=== PATIENT | female | born 1990 | race Caucasian/White ===

== ENCOUNTER 2020-11-19 18:03 | Emergency (ER) | payer BC, MEDICAID ==
[~2020-11-19] VITALS: Ht 167.6 cm; Wt 65.8 kg
[2020-11-19 18:05] VITALS: BP_SYST 137
[2020-11-19] MEDS ORDERED: IBUPROFEN 600 MG TABLET PO ONE (20:15)
[2020-11-19 20:24] VITALS: BP_SYST 137
== END 2020-11-19 20:22 | disposition home or self-care (01) ==
LOC: SED 18:03
DX: S29.011A Strain of muscle and tendon of front wall of thorax, initial encounter (principal); X50.9XXA Other and unspecified overexertion or strenuous movements or postures, initial encounter; Y93.89 Activity, other specified; Y92.89 Other specified places as the place of occurrence of the external cause; Y99.8 Other external cause status
CPT/HCPCS: 71045; 81025; 99283

== ENCOUNTER 2021-01-16 13:08 | Emergency (ER) | payer BC ==
[~2021-01-16] VITALS: Ht 162.6 cm; Wt 65.8 kg
--- NOTE | 2021-01-16 13:09 | NUR ---
DR GARCIA IN ROOM FOR EXAM
[2021-01-16 13:10] VITALS: BP_SYST 122
--- NOTE | 2021-01-16 13:10 | NUR ---
Pt to bed 6 for evaluation. Report given to GREGG Maddox who will assume care.
--- NOTE | 2021-01-16 13:10 | NUR ---
EKG DONE AT THIS TIME, SINUS ARRYTHMIA.
--- NOTE | 2021-01-16 13:16 | NUR ---
PT COMES TO ER WITH C/O INTERMITTENT ANERIOR CHEST WALL PAIN RADIATING TO UPPER BACK AREA SINCE YESTERDAY WHILE DOING NOTHING WITH ASSOCIATED MILD SOB. STATES SHE HAS RA AND HAS GENERALIZED PAIN. PT CRYING AND STATES SHE'S DEALING WITH SOME PERSONAL PROBLEMS. RESP EVEN AND UNLABORED, ON RA @99%. DENIES ANY FEVERS/N/V/D. WILL CONT TO MONITOR.
[2021-01-16 14:01] LABS: BASOPHILS # (AUTO) 0.1 K/uL (0.0-0.2); BASOPHILS % (AUTO) 0.9 % (0.0-2.0); EOSINOPHILS # (AUTO) 0.1 K/uL (0.0-0.4); EOSINOPHILS % (AUTO) 1.3 % (0.0-4.0); HEMATOCRIT 34.5 % (36-48); HEMOGLOBIN 11.1 g/dL (12.0-16.0); LYMPHOCYTES # (AUTO) 1.9 K/uL (1.0-5.5); LYMPHOCYTES % (AUTO) 33.9 % (20.5-51.5); MEAN CORPUSCULAR HEMOGLOBIN 24 pg (27-31); MEAN CORPUSCULAR HGB CONC 32 % (32-36); MEAN CORPUSCULAR VOLUME 73 fL (79.0-98.0); MONOCYTES # (AUTO) 0.4 K/uL (0.0-1.0); MONOCYTES % (AUTO) 7.6 % (1.7-9.3); NEUTROPHILS # (AUTO) 3.1 K/uL (1.8-7.7); NEUTROPHILS % (AUTO) 56.3 % (40.0-70.0); PLATELET COUNT (AUTO) 241 K/uL (130-430); RED BLOOD CELL COUNT(AUTO) 4.72 MIL/uL (4.2-6.2); WHITE BLOOD COUNT (AUTO) 5.5 K/uL (4.8-10.8)
--- NOTE | 2021-01-16 14:10 | NUR ---
URINE COLLECTED AND SENT TO LAB.
[2021-01-16 14:11] LABS: CREATININE 0.75 mg/dL (0.55-1.30); POTASSIUM 4.2 mmol/L (3.5-5.1)
[2021-01-16 14:17] LABS: ALBUMIN 3.8 g/dL (3.4-4.8); TOTAL BILIRUBIN 0.4 mg/dL (0.0-1.0)
[2021-01-16 14:36] LABS: BILIRUBIN,URINE NEGATIVE (NEGATIVE); BLOOD, URINE NEGATIVE (NEGATIVE); CLARITY/URINE CLEAR (CLEAR); GLUCOSE,URINE NEGATIVE (NEGATIVE); KETONES,URINE NEGATIVE (NEGATIVE); LEUKOCYTE ESTERASE ,URINE TRACE (NEGATIVE); NITRITE, URINE NEGATIVE (NEGATIVE); PROTEIN URINE NEGATIVE (NEGATIVE); UROBILINOGEN,URINE 0.2 (0.2-1.0)
[2021-01-16 14:38] LABS: COLOR,URINE YELLOW (YELLOW)
[2021-01-16 14:44] LABS: BACTERIA,URINE FEW /HPF (None Seen); MUCUS,URINE 1+ /LPF (None Seen); RBC,URINE 0-3 /HPF (0-3)
--- NOTE | 2021-01-16 14:52 | NUR ---
US BEING DONE AT THIS TIME.
--- NOTE | 2021-01-16 15:04 | NUR ---
NO ACUTE CHNAGE IN CONDITION, VSS. PT IN NAD. RESP EVEN AND UNLABORED, ON RA @100%.
[2021-01-16 15:07] LABS: AMYLASE 46 U/L (0-100); LIPASE 64 U/L (73-393)
[2021-01-16] MEDS ORDERED: OMEP20CA15 PO (15:33)
--- NOTE | 2021-01-16 15:52 | NUR ---
Patient given written and verbal discharge instructions and verbalizes understanding. ER MD discussed with patient the results and treatment provided. Patient in stable condition. ID arm band removed. Rx of omeprazole given. Patient educated on pain management and to follow up with PMD. Pain Scale . Opportunity for questions provided and answered. Medication side effect fact sheet provided.
[2021-01-16 15:53] VITALS: BP_SYST 129
== END 2021-01-16 15:52 | disposition home or self-care (01) ==
LOC: SED 13:08
DX: K29.70 Gastritis, unspecified, without bleeding (principal); Z79.899 Other long term (current) drug therapy
CPT/HCPCS: 36415; 71045; 76700-TC; 80053; 81000; 81025; 82150; 83690; 84484; 84703; 85025; 87086; 93005; 99285